=== PATIENT | female | born 1980 | race Caucasian/White ===

== ENCOUNTER → 2017-03-23 | Outpatient (CLI) | payer MEDICAID ==
[~2017-03-23] MED LIST: 00186-0372-20 IH; AMBIEN 5MG TABLE5 MG PO; AMITRIPTYLINE H10 M1 PO; AMITRIPTYLINE H50 M1 PO; ANTIINFLAMATORY; BENTYL 10MG10 MG/CAP PO; BUSPAR10 MG PO; CARAFATE 1GM1 G PO; CIPRO 250MG TA250 MG PO; CIPRO 500MG TA500 MG PO; CLEOCIN HC150 MG/CAP PO; COLACE 100100 MG/CAP PO; DAILY MULTIPLE1 T18 PO; DOXYCYCLINE 10100 MG PO; ELESTAT OU; FIORICET 325 MG1 TA1 PO; FLAGYL500 MG PO; FLEXERIL 1010 MG/TAB PO; GLUCOPHAGE XR500 M1 PO; IMITREX 25MG TA25 MG PO; INDERAL 10MG10 MG PO; INDERAL40 MG PO; INDERAL80 MG PO; LEXAPRO20 MG PO; MAXALT MLT10 MG/TAB PO; MIRALAX PA17 GM/Dose PO; MYRBETR50MG PO; NAPROSYN500 MG PO; NEURONTIN300 MG/CAP PO; NORCO 325 MG-101 TAB PO; NORCO 325 MG-51 TAB PO; NORCO 325 MG-7.1 TAB PO; NORFLEX 10100 MG/TAB PO; PATADAY 2.5 ML2.5 ML OU; PERCOCET 325 MG1 TA2 PO; PHENERGAN 25 TA25 MG PO; PRILOSEC 20MG20 MG PO; PROTONIX 40MG T40 MG PO; QVAR0.08 MG/AC IH; RELAFEN750 MG PO; ROBAXIN 50500 MG/TAB PO; SEPTRA DS 8001 TAB PO; TOPAMAX 100MG100 M1 PO; TOPAMAX 25MG25 M1 PO; TOPAMAX50 MG PO; TOPROL XL 25MG25 MG PO; ULTRAM 50MG TAB50 MG PO; ULTRAM ER200 MG PO; VENTOLIN0.09 MG IH; VIMOVO 20 MG PO; VITAMIN D31000 I1 PO; VOLTAREN 75 DR75 MG PO; XALATAN EYE DROPS OD; XALATAN EYE DROPS OP; XYAL5 MG PO; XYZAL5 MG PO; ZITHROMAX Z PA250 MG PO; ZOFRAN 4MG T4 MG/TAB PO
== END ==
LOC: COL.VAS 11:51
DX: I83.93 Asymptomatic varicose veins of bilateral lower extremities (principal); I87.2 Venous insufficiency (chronic) (peripheral); K59.00 Constipation, unspecified
CPT/HCPCS: Q9967

== ENCOUNTER 2017-06-09 09:50 | Day surgery (SDC) | payer MEDICAID ==
[~2017-06-09] VITALS: Ht 165.1 cm; Wt 118.0 kg
[~2017-06-09 09:50] MED LIST changes: -00186-0372-20 IH; -BENTYL 10MG10 MG/CAP PO; -COLACE 100100 MG/CAP PO; -DAILY MULTIPLE1 T18 PO; -MIRALAX PA17 GM/Dose PO; -MYRBETR50MG PO; -PATADAY 2.5 ML2.5 ML OU; -ULTRAM ER200 MG PO; -VITAMIN D31000 I1 PO; -XALATAN EYE DROPS OP
[2017-06-09 11:19] VITALS: BP 139/73; PULSE 63; TEMP 98.2
[2017-06-09] MEDS ORDERED: DAILY MULTIPLE1 T18 PO (12:03)
[2017-06-09] MEDS ORDERED: VITAMIN D31000 I1 PO (12:03)
[2017-06-09] MEDS ORDERED: MYRBETR50MG PO (12:04)
[2017-06-09] MEDS ORDERED: PATADAY 2.5 ML2.5 ML OU (12:06)
[2017-06-09] MEDS ORDERED: XALATAN EYE DROPS OP (12:06)
[2017-06-09] MEDS ORDERED: MIRALAX PA17 GM/Dose PO (12:08)
[2017-06-09] MEDS ORDERED: 00186-0372-20 IH (12:08)
[2017-06-09] MEDS ORDERED: VENTOLIN0.09 MG IH (12:08)
[2017-06-09] MEDS ORDERED: NORCO 325 MG-51 TAB PO (13:10)
[2017-06-09] MEDS ORDERED: COLACE 100100 MG/CAP PO (13:10)
[2017-06-09 13:40] VITALS: BP 106/59; PULSE 95; TEMP 98.3
[2017-06-09 14:00] VITALS: BP 117/61; PULSE 86
[2017-06-09 14:15] VITALS: BP 124/66; PULSE 87
[2017-06-10] MEDS ORDERED: PHENERGAN 25 TA25 MG PO (01:25)
== END 2017-06-09 14:45 | disposition home or self-care (01) ==
LOC: SDCO 09:50
DX: A63.0 Anogenital (venereal) warts (principal); G47.00 Insomnia, unspecified; K21.9 Gastro-esophageal reflux disease without esophagitis; F32.9 Major depressive disorder, single episode, unspecified; H40.9 Unspecified glaucoma; I49.9 Cardiac arrhythmia, unspecified; I10 Essential (primary) hypertension; M19.90 Unspecified osteoarthritis, unspecified site; G43.909 Migraine, unspecified, not intractable, without status migrainosus; M48.06 Spinal stenosis, lumbar region; N60.09 Solitary cyst of unspecified breast; N32.81 Overactive bladder; N27.9 Small kidney, unspecified; J18.9 Pneumonia, unspecified organism; E66.01 Morbid (severe) obesity due to excess calories; G93.0 Cerebral cysts; Z90.49 Acquired absence of other specified parts of digestive tract; Z68.42 Body mass index [BMI] 45.0-49.9, adult
CPT/HCPCS: J1100; J1170; J2405; J2550; J2704; J3010; J7120

== ENCOUNTER 2017-06-10 00:06 | Emergency (ER) | payer MEDICAID ==
[~2017-06-10] VITALS: Ht 165.1 cm; Wt 117.3 kg
[~2017-06-10 00:06] MED LIST changes: +00186-0372-20 IH; +COLACE 100100 MG/CAP PO; +DAILY MULTIPLE1 T18 PO; +MIRALAX PA17 GM/Dose PO; +MYRBETR50MG PO; +PATADAY 2.5 ML2.5 ML OU; +VITAMIN D31000 I1 PO; +XALATAN EYE DROPS OP
[2017-06-10 00:16] VITALS: TEMP 97.8
[2017-06-10 00:57] LABS: BASO # 0.1 (0.0-0.2); BASO % 0.7 % (0.0-2.0); EOS # 0.1 (0.0-0.7); EOS % 1.2 % (0-4.0); GRAN # 8.6 (1.4-6.5); GRAN % 78.7 % (42.2-75.2); HEMATOCRIT 40.4 % (37.0-47.0); HEMOGLOBIN 13.3 g/dl (12.5-16.0); LYMPH # 1.4 (1.2-3.4); LYMPH % 12.8 % (20.0-51.0); MEAN CELL VOLUME 94 fl (80.0-100.0); MEAN CORPUSCULAR HEMOGLOBIN 31 pg (27.0-31.0); MEAN CORPUSCULAR HGB CONC 33 g/dl (33.0-37.0); MEAN PLATELET VOLUME 9.6 fl (7.4-10.4); MONO # 0.7 (0.1-0.6); PLATELET COUNT 274 K/mm3 (130-400); RED BLOOD COUNT 4.32 M/mm3 (4.10-5.30); REDCELL DISTRIBUTION WIDTH-CV 12.6 % (11.5-14.5); WHITE BLOOD COUNT 10.9 K/mm3 (4.8-10.8)
[2017-06-10 01:06] LABS: ADJUSTED CALCIUM 9.2 mg/dL (8.4-10.2); ALBUMIN 3.9 gm/dL (3.5-5.0); BILIRUBIN,TOTAL 0.5 mg/dL (0.0-1.0); CALCIUM 9.1 mg/dL (8.4-10.2); CREATININE, serum 0.78 mg/dL (0.52-1.25); POTASSIUM 3.9 mmol/L (3.4-5.0); TOTAL PROTEIN 7.4 gm/dL (6.4-8.2)
[2017-06-10] MEDS ORDERED: PHENERGAN 25 TA25 MG PO (01:25)
[2017-06-10 02:03] VITALS: BP 138/70; PULSE 76
== END 2017-06-10 02:11 | disposition home or self-care (01) ==
LOC: COL.ER 00:06
PROVIDERS: Emergency Medicine
DX: R11.2 Nausea with vomiting, unspecified (principal); Z98.890 Other specified postprocedural states; I10 Essential (primary) hypertension
CPT/HCPCS: J1200; J2405; J2550; J7030

== ENCOUNTER 2017-07-31 06:57 | Day surgery (SDC) | payer MEDICAID ==
[2017-07-31] VITALS (8 sets, daily range): BP systolic 102–126; BP diastolic 70–84; PULSE 69–76; TEMP 97.9
[~2017-07-31] VITALS: Ht 165.2 cm; Wt 118.1 kg
[2017-07-31] MEDS ORDERED: BUSPAR10 MG PO ×2 (08:55→09:00)
[2017-07-31] MEDS ORDERED: BENTYL 10MG10 MG/CAP PO (08:58)
[2017-07-31] MEDS ORDERED: ULTRAM ER200 MG PO (08:59)
== END 2017-07-31 12:29 | disposition home or self-care (01) ==
LOC: COL.CAR 06:57
DX: Z45.09 Encounter for adjustment and management of other cardiac device (principal); I49.3 Ventricular premature depolarization; R00.1 Bradycardia, unspecified; E66.01 Morbid (severe) obesity due to excess calories; I10 Essential (primary) hypertension
CPT/HCPCS: J2250; J3010; J3370; J7050

== ENCOUNTER → 2017-11-07 | Outpatient (CLI) | payer MEDICAID ==
[~2017-11-07] MED LIST changes: +BENTYL 10MG10 MG/CAP PO; +ULTRAM ER200 MG PO
== END ==
LOC: COL.PUL 10:00
DX: Z02.71 Encounter for disability determination (principal); M19.072 Primary osteoarthritis, left ankle and foot

== ENCOUNTER 2017-11-23 17:12 | Emergency (ER) | payer MEDICAID ==
[~2017-11-23] VITALS: Ht 165.1 cm; Wt 118.2 kg
[2017-11-23 17:14] VITALS: BP 135/78; TEMP 98.3
[2017-11-23 20:03] VITALS: PULSE 60
[2017-11-23] MEDS ORDERED: CYMBALTA 60MG60 MG PO (20:08)
== END 2017-11-23 20:03 | disposition home or self-care (01) ==
LOC: COL.ER 17:12
DX: M25.561 Pain in right knee (principal); I10 Essential (primary) hypertension; G43.909 Migraine, unspecified, not intractable, without status migrainosus; F32.9 Major depressive disorder, single episode, unspecified; J45.909 Unspecified asthma, uncomplicated

== ENCOUNTER 2017-12-06 20:02 | Emergency (ER) | payer MEDICAID ==
[~2017-12-06] VITALS: Ht 165.1 cm; Wt 118.2 kg
[~2017-12-06 20:02] MED LIST changes: +CYMBALTA 60MG60 MG PO
[2017-12-06 20:04] VITALS: BP 139/71; PULSE 80; TEMP 97.2
[2017-12-06] MEDS ORDERED: HYDROCORTISONE30 G3 TP (21:35)
== END 2017-12-06 21:43 | disposition home or self-care (01) ==
LOC: COL.ER 20:02
DX: L30.9 Dermatitis, unspecified (principal); I10 Essential (primary) hypertension; J45.909 Unspecified asthma, uncomplicated; Z90.49 Acquired absence of other specified parts of digestive tract; Z98.890 Other specified postprocedural states

== ENCOUNTER 2017-12-11 10:22 | Emergency (ER) | payer MEDICAID ==
[~2017-12-11] VITALS: Ht 165.1 cm; Wt 118.2 kg
[~2017-12-11 10:22] MED LIST changes: +HYDROCORTISONE30 G3 TP
[2017-12-11 10:46] VITALS: TEMP 98.1
[2017-12-11 11:19] LABS: INFLUENZA A NEGATIVE; INFLUENZA B POSITIVE
[2017-12-11 12:23] VITALS: BP 130/74; PULSE 78
== END 2017-12-11 12:21 | disposition home or self-care (01) ==
LOC: COL.ER 10:22
PROVIDERS: Physician Assistant
DX: J10.1 Influenza due to other identified influenza virus with other respiratory manifestations (principal); G43.909 Migraine, unspecified, not intractable, without status migrainosus; Z86.69 Personal history of other diseases of the nervous system and sense organs; Z87.448 Personal history of other diseases of urinary system; Z90.49 Acquired absence of other specified parts of digestive tract; Z98.890 Other specified postprocedural states

== ENCOUNTER 2018-02-20 19:23 | Emergency (ER) | payer MEDICAID ==
[~2018-02-20] VITALS: Ht 165.1 cm; Wt 118.2 kg
[2018-02-20 19:56] VITALS: BP 139/88; TEMP 97.8
[2018-02-20 20:03] VITALS: PULSE 75
== END 2018-02-20 20:00 | disposition home or self-care (01) ==
LOC: COL.ER 19:23
DX: G89.29 Other chronic pain (principal); M54.5 Low back pain; I10 Essential (primary) hypertension; Z79.52 Long term (current) use of systemic steroids
CPT/HCPCS: J1885; J2270

== ENCOUNTER 2018-02-24 21:04 | Emergency (ER) | payer MEDICAID ==
[~2018-02-24] VITALS: Ht 165.1 cm; Wt 118.2 kg
[2018-02-24 22:33] VITALS: BP 134/83; TEMP 98.7
[2018-02-24 23:36] VITALS: PULSE 67
== END 2018-02-24 23:33 | disposition home or self-care (01) ==
LOC: COL.ER 21:04
DX: M54.5 Low back pain (principal); G43.909 Migraine, unspecified, not intractable, without status migrainosus; F32.9 Major depressive disorder, single episode, unspecified; J45.909 Unspecified asthma, uncomplicated; I10 Essential (primary) hypertension; G89.29 Other chronic pain; Z88.0 Allergy status to penicillin
CPT/HCPCS: J1885; J2360

== ENCOUNTER 2018-03-01 20:17 | Emergency (ER) | payer MEDICAID ==
[~2018-03-01] VITALS: Ht 165.1 cm; Wt 118.2 kg
[2018-03-01 20:21] VITALS: BP 133/76; TEMP 97.8
[2018-03-01] MEDS ORDERED: LIDODERM 5% PATC1 EA TP (21:23)
[2018-03-01 21:34] VITALS: PULSE 97
== END 2018-03-01 21:35 | disposition home or self-care (01) ==
LOC: COL.ER 20:17
DX: G89.29 Other chronic pain (principal); M54.5 Low back pain; G43.909 Migraine, unspecified, not intractable, without status migrainosus; I10 Essential (primary) hypertension; J45.909 Unspecified asthma, uncomplicated; F32.9 Major depressive disorder, single episode, unspecified; Z88.0 Allergy status to penicillin
CPT/HCPCS: J1885; J2360

== ENCOUNTER 2018-05-06 14:19 | Emergency (ER) | payer MEDICAID ==
[~2018-05-06] VITALS: Ht 165.1 cm; Wt 117.3 kg
[~2018-05-06 14:19] MED LIST changes: +LIDODERM 5% PATC1 EA TP
[2018-05-06 14:27] VITALS: BP 126/89; TEMP 98.7
[2018-05-06 14:50] LABS: COLLECTION METHOD CLEAN CATCH
[2018-05-06 15:13] LABS: MUCOUS Present /lpf; PH 6 (5-8); URINE APPEARANCE Hazy; URINE BACTERIA Rare /hpf; URINE BILIRUBIN Negative (NEGATIVE); URINE BLOOD Negative (NEGATIVE); URINE COLOR Yellow; URINE GLUCOSE Negative (NEGATIVE); URINE KETONE Negative (NEGATIVE); URINE LEUKOCYTE ESTERASE 1+ (NEGATIVE); URINE NITRATE Negative (NEGATIVE); URINE PROTEIN(semi-quant) Negative (NEGATIVE); URINE RBC 0-2 /hpf; URINE UROBILINOGEN Negative (NEGATIVE)
[2018-05-06] MEDS ORDERED: MACROBID 1100 MG/CAP PO (15:22)
[2018-05-06 15:32] VITALS: PULSE 76
== END 2018-05-06 15:32 | disposition home or self-care (01) ==
LOC: COL.ER 14:19
PROVIDERS: Family Medicine
DX: N20.1 Calculus of ureter (principal)

== ENCOUNTER 2018-08-11 22:29 | Emergency (ER) | payer MEDICAID ==
[~2018-08-11] VITALS: Ht 165.1 cm; Wt 112.7 kg
[~2018-08-11 22:29] MED LIST changes: +MACROBID 1100 MG/CAP PO
[2018-08-11 22:32] VITALS: BP 129/75; TEMP 98
[2018-08-11] MEDS ORDERED: CEPHALEXIN500 M1 PO (23:20)
[2018-08-11 23:54] VITALS: PULSE 70
== END 2018-08-12 00:55 | disposition home or self-care (01) ==
LOC: COL.ER 22:29
DX: L03.115 Cellulitis of right lower limb (principal); S90.511A Abrasion, right ankle, initial encounter; I10 Essential (primary) hypertension; J45.909 Unspecified asthma, uncomplicated

== ENCOUNTER → 2018-12-14 | Outpatient (CLI) | payer MEDICAID ==
[~2018-12-14] MED LIST changes: +CEPHALEXIN500 M1 PO
== END ==
LOC: COL.RAD 14:48
DX: J32.9 Chronic sinusitis, unspecified (principal)

== ENCOUNTER 2019-01-12 16:48 | Emergency (ER) | payer MEDICAID | END 2019-01-12 19:10 | disposition home or self-care (01) | LOC: COL.ER 16:48 | DX: S61.412A Laceration without foreign body of left hand, initial encounter (principal); F32.9 Major depressive disorder, single episode, unspecified; G43.909 Migraine, unspecified, not intractable, without status migrainosus; W25.XXXA Contact with sharp glass, initial encounter; Y92.009 Unspecified place in unspecified non-institutional (private) residence as the place of occurrence of the external cause; Y93.G1 Activity, food preparation and clean up ==

== ENCOUNTER 2019-01-13 21:14 | Emergency (ER) | payer MEDICAID | END 2019-01-13 21:40 | disposition home or self-care (01) | LOC: COL.ER 21:14 | DX: S61.412D Laceration without foreign body of left hand, subsequent encounter (principal) ==

== ENCOUNTER 2019-03-01 13:21 | Emergency (ER) | payer MEDICAID ==
[~2019-03-01] VITALS: Ht 165.1 cm; Wt 113.6 kg
[2019-03-01 13:26] VITALS: BP 131/77; TEMP 98.1
[2019-03-01] MEDS ORDERED: CEPHALEXIN500 M1 PO (13:47)
[2019-03-01] MEDS ORDERED: LEVAQUIN 5500 MG/TA1 PO (13:47)
[2019-03-01 13:55] VITALS: PULSE 82
== END 2019-03-01 13:56 | disposition home or self-care (01) ==
LOC: COL.ER 13:21
DX: S91.311A Laceration without foreign body, right foot, initial encounter (principal); I10 Essential (primary) hypertension; G43.909 Migraine, unspecified, not intractable, without status migrainosus; K21.9 Gastro-esophageal reflux disease without esophagitis; J45.909 Unspecified asthma, uncomplicated; F32.9 Major depressive disorder, single episode, unspecified; Z23 Encounter for immunization; W45.0XXA Nail entering through skin, initial encounter; Y92.009 Unspecified place in unspecified non-institutional (private) residence as the place of occurrence of the external cause

== ENCOUNTER → 2019-05-15 | Outpatient (CLI) | payer MEDICAID ==
[~2019-05-15] MED LIST changes: +LEVAQUIN 5500 MG/TA1 PO
== END ==
LOC: MC.RAD 12:52
DX: N63.10 Unspecified lump in the right breast, unspecified quadrant (principal)

== ENCOUNTER 2019-07-20 16:43 | Emergency (ER) | payer MEDICAID ==
[~2019-07-20] VITALS: Ht 165.1 cm; Wt 111.8 kg
[2019-07-20 16:52] VITALS: BP 130/77; TEMP 98.5
[2019-07-20] MEDS ORDERED: PREDNISONE20 MG PO (18:56)
[2019-07-20 19:42] VITALS: PULSE 66
== END 2019-07-20 19:42 | disposition home or self-care (01) ==
LOC: COL.ER 16:43
DX: J40 Bronchitis, not specified as acute or chronic (principal); R09.81 Nasal congestion
CPT/HCPCS: J1100; J1885; J2550

== ENCOUNTER 2019-09-06 23:25 | Emergency (ER) | payer MEDICAID ==
[~2019-09-06] VITALS: Ht 165.1 cm; Wt 109.5 kg
[~2019-09-06 23:25] MED LIST changes: +PREDNISONE20 MG PO
[2019-09-06 23:28] VITALS: BP 141/77; TEMP 98.5
[2019-09-06] MEDS ORDERED: ATARAX 25MG25 MG/TAB PO (23:40)
[2019-09-06] MEDS ORDERED: ZYRTEC 10MG10 MG PO (23:40)
[2019-09-06] MEDS ORDERED: TRIAM OI 0.1 80 TOP (23:40)
[2019-09-06 23:52] VITALS: PULSE 73
== END 2019-09-06 23:52 | disposition home or self-care (01) ==
LOC: COL.ER 23:25
DX: L25.9 Unspecified contact dermatitis, unspecified cause (principal)

== ENCOUNTER 2019-09-29 18:14 | Emergency (ER) | payer MEDICAID ==
[~2019-09-29] VITALS: Ht 165.1 cm; Wt 109.1 kg
[~2019-09-29 18:14] MED LIST changes: +ATARAX 25MG25 MG/TAB PO; +TRIAM OI 0.1 80 TOP; +ZYRTEC 10MG10 MG PO
[2019-09-29 18:28] VITALS: BP 135/83; TEMP 97.9
[2019-09-29 20:19] VITALS: PULSE 58
== END 2019-09-29 20:20 | disposition home or self-care (01) ==
LOC: COL.ER 18:14
DX: G43.909 Migraine, unspecified, not intractable, without status migrainosus (principal); I10 Essential (primary) hypertension; J45.909 Unspecified asthma, uncomplicated; Z79.891 Long term (current) use of opiate analgesic
CPT/HCPCS: J1885; J2550

== ENCOUNTER 2019-10-30 13:18 | Emergency (ER) | payer MEDICAID ==
[~2019-10-30] VITALS: Ht 165.1 cm; Wt 109.1 kg
[2019-10-30 13:55] VITALS: BP 133/80; TEMP 98.1
[2019-10-30 14:36] VITALS: PULSE 61
[2019-10-30] MEDS ORDERED: ZITHROMAX Z PA250 MG PO (14:56)
== END 2019-10-30 14:55 | disposition home or self-care (01) ==
LOC: COL.ER 13:18
DX: J20.9 Acute bronchitis, unspecified (principal); G43.909 Migraine, unspecified, not intractable, without status migrainosus; J45.909 Unspecified asthma, uncomplicated; F32.9 Major depressive disorder, single episode, unspecified; F17.210 Nicotine dependence, cigarettes, uncomplicated; Z88.0 Allergy status to penicillin; Z88.5 Allergy status to narcotic agent; Z90.89 Acquired absence of other organs

== ENCOUNTER 2019-11-15 18:56 | Emergency (ER) | payer MEDICAID | END 2019-11-15 19:40 | disposition left against medical advice (07) | LOC: COL.ER 18:56 | DX: Z72.89 Other problems related to lifestyle (principal) ==

== ENCOUNTER 2019-11-26 18:04 | Emergency (ER) | payer MEDICAID ==
[~2019-11-26] VITALS: Ht 165.1 cm; Wt 109.1 kg
[2019-11-26 18:08] VITALS: TEMP 97.8
[2019-11-26 18:55] LABS: COLLECTION METHOD CLEAN CATCH
[2019-11-26 18:57] LABS: BASO # 0.1 (0.0-0.2); BASO % 1.1 % (0.0-2.0); EOS # 0.3 (0.0-0.7); EOS % 2.8 % (0-4.0); GRAN # 5.4 (1.4-6.5); GRAN % 61.7 % (42.2-75.2); HEMATOCRIT 42.1 % (37.0-47.0); HEMOGLOBIN 13.7 g/dl (12.5-16.0); LYMPH # 2.3 (1.2-3.4); LYMPH % 26.1 % (20.0-51.0); MEAN CELL VOLUME 93 fl (80.0-100.0); MEAN CORPUSCULAR HEMOGLOBIN 30 pg (27.0-31.0); MEAN CORPUSCULAR HGB CONC 33 g/dl (33.0-37.0); MEAN PLATELET VOLUME 9.5 fl (7.4-10.4); MONO # 0.7 (0.1-0.6); MONO % 8.1 % (1.7-9.3); PLATELET COUNT 342 K/mm3 (130-400); RED BLOOD COUNT 4.54 M/mm3 (4.10-5.30); REDCELL DISTRIBUTION WIDTH-CV 13.1 % (11.5-14.5)
[2019-11-26 19:09] LABS: PH 7 (5-8); URINE APPEARANCE Hazy; URINE BACTERIA Rare /hpf; URINE BILIRUBIN Negative (NEGATIVE); URINE BLOOD 3+ (NEGATIVE); URINE COLOR Straw; URINE GLUCOSE Negative (NEGATIVE); URINE KETONE Negative (NEGATIVE); URINE LEUKOCYTE ESTERASE 1+ (NEGATIVE); URINE NITRATE Negative (NEGATIVE); URINE PROTEIN(semi-quant) Negative (NEGATIVE); URINE UROBILINOGEN Negative (NEGATIVE)
[2019-11-26 19:16] LABS: ALBUMIN 4.4 gm/dL (3.5-5.0); BILIRUBIN,TOTAL 0.3 mg/dL (0.0-1.0); CALCIUM 8.9 mg/dL (8.4-10.2); CREATININE, serum 0.78 (0.52-1.25); POTASSIUM 3.8 mmol/L (3.4-5.0); TOTAL PROTEIN 7.9 gm/dL (6.4-8.2)
[2019-11-26 19:45] LABS: THYROID STIMULATING HORMONE 2.39 uIU/mL (0.465-4.680)
[2019-11-26] MEDS ORDERED: MACROBID 1100 MG/CAP PO (20:10)
[2019-11-26 20:25] VITALS: BP 123/74; PULSE 62
== END 2019-11-26 20:25 | disposition home or self-care (01) ==
LOC: COL.ER 18:04
PROVIDERS: Emergency Medicine
DX: N39.0 Urinary tract infection, site not specified (principal); I10 Essential (primary) hypertension; G43.909 Migraine, unspecified, not intractable, without status migrainosus; J45.909 Unspecified asthma, uncomplicated; Z87.39 Personal history of other diseases of the musculoskeletal system and connective tissue
CPT/HCPCS: J7030

== ENCOUNTER 2019-12-18 15:14 | Emergency (ER) | payer MEDICAID ==
[~2019-12-18] VITALS: Ht 165.1 cm; Wt 109.1 kg
[2019-12-18 15:31] VITALS: BP 129/80; PULSE 63; TEMP 98.2
== END 2019-12-18 21:00 ==
LOC: COL.ER 15:14
DX: G43.909 Migraine, unspecified, not intractable, without status migrainosus (principal)

== ENCOUNTER 2021-12-27 23:12 | Emergency (ER) | payer MEDICAID ==
[~2021-12-27] VITALS: Ht 165.1 cm; Wt 103.2 kg
[2021-12-28] MEDS ORDERED: PREDNISONE50 MG PO (00:17)
[2021-12-28 00:45] VITALS: BP 137/89; PULSE 82; TEMP 97.5
== END 2021-12-28 00:45 | disposition home or self-care (01) ==
LOC: COL.ER 23:12
DX: L25.9 Unspecified contact dermatitis, unspecified cause (principal)
CPT/HCPCS: J7512

== ENCOUNTER → 2024-05-08 | Outpatient (CLI) | payer MEDICAID ==
[~2024-05-08] MED LIST changes: +PREDNISONE50 MG PO
== END ==
LOC: MHCPAIN 08:04
DX: M47.816 Spondylosis without myelopathy or radiculopathy, lumbar region (principal); M48.061 Spinal stenosis, lumbar region without neurogenic claudication; I10 Essential (primary) hypertension; G43.909 Migraine, unspecified, not intractable, without status migrainosus
CPT/HCPCS: G0463